=== PATIENT | female | born 1985 | race Caucasian/White ===

== ENCOUNTER 2018-08-22 17:00 | Inpatient (IN) | payer BC ==
[2018-08-22 17:29] VITALS: BMI 26.6
[2018-08-22] MEDS ORDERED: NS / Oxytocin 40 units/1000ml 1,000 ML IV PRN (18:01)
[2018-08-22] MEDS ORDERED: Lidocaine 1% (PF) 30 ML VIAL SC PRN (18:01)
[2018-08-22] MEDS ORDERED: Butorphanol Tartrate 1 MG/ML VIAL SLOW IVP PRN (18:01)
[2018-08-22] MEDS ORDERED: Ondansetron PF 4 MG/2 ML Vial IVP PRN (18:01)
[2018-08-22] MEDS ORDERED: Lactated Ringer's 1,000 ML IV SCH ×2 (18:15)
[2018-08-22 18:23] LABS: Hemoglobin 13.6 g/dL (12.0-16.0); Mean Corpuscular HGB CONC 33.2 g/dL (32.0-36.0); Mean Corpuscular Hemoglobin 30.2 pg (27.0-31.0); Mean Platelet Volume 9.8 fL (7.4-10.4); Platelet Count 128 thou/uL (130-400); RBC Distribution Width 12.3 % (11.5-14.5); Red Blood Cell (RBC) Count 4.49 mill/uL (4.20-5.40); White Blood Cell (WBC) Count 10.4 thou/uL (4.8-10.8)
[2018-08-22 19:01] LABS: HBSAg Index 0.31 S/CO (0-0.99); Hep B Surf Ag Non-Reactive S/CO (NonReactive)
[2018-08-22 19:07] LABS: Syphilis Antibody Nonreactive (Nonreactive); Syphilis Antibody Index 0.02 S/CO (<1.00 Non-Reactive)
[2018-08-23] MEDS ORDERED: Oxytocin 10 UNITS/ML VIAL ONE ×2 (00:25)
--- NOTE | 2018-08-23 01:23 | PDOC.LDHP ---
Labor and Delivery H&P Chief complaint: loss of fluid HPI: Patient reports sudden loss of clear fluid at 0600 on 08/22/18. Came to [facility] for evaluation of FHTs. Current gestational age (weeks): 38 Due date: 09/05/18 Dating criteria: last menstrual period Grav: 3 Para: 2 OB History Details: 8.8 9.4 Current complications: none Abnormal US findings: No Current medications: pre-mika vitamins Previous surgical history: other (knee surgery) Allergies/Adverse Reactions: Allergies Allergy/AdvReac Type Severity Reaction Status Date / Time Penicillins Allergy Mild Rash Verified 08/22/18 17:21 Social history: none - Physical Exam Vital signs reviewed and normal: yes General: breathing through contractions Lungs: nonlabored breathing Abdomen: gravid Extremeties: trace edema FHT: category 1 - Vaginal Exam cm dilated: 7 Effacement: 75% Station: -1 - OB Labs Blood type: A RH: negative Antibody Screen: negative HIV: negative RPR: negative HEPSAg: negative 1 hour GCT: negative GBS: negative Urine drug screen: negative Rubella: immune - Assessment L&D Assessment: term rupture in membranes - Plan Plan: admit to L&D
--- NOTE | 2018-08-23 01:27 | PDOC.OPDEL ---
OB Operative/Delivery Note Delivery Dr/Surgeon: Gladys varela Pre-Delivery Diagnosis: active labor Procedure/Post Delivery Dx: spontaneous vaginal delivery Weeks gestation: 38 Anesthesia: none - Findings A Sex: male Weight: 8 lb 13 oz - 1 min: 8 - 5 min: 8 - Additional Findings/Plan Placenta delivered: spontaneous Repaired Obstetrical Laceration: 1st degree Estimated blood loss: 200mL Compilations/Other Findings: Hemorrhoids. Post delivery plan: routine recovery
[2018-08-23] MEDS ORDERED: NS / Oxytocin 40 units/1000ml 1,000 ML IV SCH (02:08)
[2018-08-23] MEDS ORDERED: Benzocaine-Menthol 82.5 ML CAN TOP PRN (02:08)
[2018-08-23] MEDS ORDERED: Methylergonovine 0.2 MG/ML VIAL IM PRN (02:08)
[2018-08-23] MEDS ORDERED: HYDROcodone/Acetaminophen 5/325 mg Tablet PO PRN ×2 (02:08)
[2018-08-23] MEDS ORDERED: Misoprostol 200 MCG TAB VAG PRN (02:08)
[2018-08-23] MEDS ORDERED: Milk Of Magnesia 30 ML UDCUP PO PRN (02:08)
[2018-08-23] MEDS ORDERED: Bisacodyl 10 MG SUPP PR PRN (02:08)
[2018-08-23] MEDS ORDERED: Adacel (T-DAP) 0.5 ML SYRINGE IM ONE (09:00)
[2018-08-23] MEDS ORDERED: Prenatal Vitamin 1 TAB PO SCH (09:00)
[2018-08-23] MEDS: Ferrous Sulfate 325 MG TAB PO SCH ×2 (09:45→18:11)
[2018-08-23] MEDS: Docusate Calcium (SURFAK) 240 MG CAP PO SCH ×2 (09:46→23:04)
[2018-08-23] MEDS: Ibuprofen 800 MG TAB PO SCH ×2 (18:10→23:05)
[2018-08-24] MEDS: Ibuprofen 800 MG TAB PO SCH ×2 (04:18→13:54)
[2018-08-24 07:43] VITALS: BP 85/50; TEMP 97.6
--- NOTE | 2018-08-24 10:54 | PDOC.PP ---
Post Progress Note Post Day #: 1 Subjective: doing well except is causing sore nipples and her hemrrhoids are really bothering her. PO intake tolerated: yes Flatus: yes Ambulation: yes Vital Signs (12 hours) Temp Pulse Resp BP Pulse Ox 08/24/18 07:42 97.6 F 68 16 85/50 L 98 Weight Weight 170 lb - Physical Examination General: NAD Cardiovascular: no m/r/g, RRR Respiratory: clear to auscultation bilaterally Abdominal: + bowel sounds Skin: no rash Neurological: no gross focal deficits Psychiatric: A&Ox3, normal affect Result Diagrams: 08/22/18 18:15 Additional Labs: Post Labs Blood Type A NEGATIVE 08/22/18 18:15 Hep Bs Antigen Non-Reactive S/CO (NonReactive) 08/22/18 18:15 (1) (spontaneous vaginal delivery) Code(s): O80 - ENCOUNTER FOR FULL-TERM UNCOMPLICATED DELIVERY Status: Acute - Assessment/Plan A: now P3 S/P at [id number] gestations with 1 degree laceration repaired. NML day 1 exam p: Assisted with and latching at bedside - pt states it is much better Routine care until discharge home Hemorrhoid suppositories sent from Office 6 week follow up
== END 2018-08-24 19:18 | disposition home or self-care (01) | DRG 806 ==
LOC: L&D/OP 17:00 → L&D-LIB 08-23 01:38 → 3SW 08-23 04:04
PROVIDERS: ADMIT Obstetrics & Gynecology; ATTEND Obstetrics & Gynecology
PROC: 10E0XZZ Delivery of Products of Conception, External Approach (ICD-10-PCS; principal; 2018-08-24)
PROC: 0HQ9XZZ Repair Perineum Skin, External Approach (ICD-10-PCS; 2018-08-24)
DX: O70.0 First degree perineal laceration during delivery (principal); O87.2 Hemorrhoids in the puerperium; Z37.0 Single live birth; Z98.890 Other specified postprocedural states; Z3A.38 38 weeks gestation of pregnancy
CPT/HCPCS: 85027; 86780; 86850; 86870; 86900; 86901; 87340; J2001; J2590